=== PATIENT | male | born 1965 | race Caucasian/White ===

== ENCOUNTER 2020-10-10 01:02 | Emergency (ER) | payer OTHER ==
[2020-10-10 04:03] LABS: HEMOGLOBIN 12.3 gm/dl (14.0-17.5); RED BLOOD COUNT 3.43 M/UL (4.20-5.50); WHITE BLOOD COUNT 12.6 K/UL (4.5-11.0)
[2020-10-10 04:38] LABS: BUN/CREATININE RATIO 17 (0-10)
== END 2020-10-10 05:30 | disposition short-term general hospital (02) ==
LOC: ER1 01:02
PROVIDERS: Family Medicine
DX: S27.0XXA Traumatic pneumothorax, initial encounter (principal); S22.42XA Multiple fractures of ribs, left side, initial encounter for closed fracture; S52.502A Unspecified fracture of the lower end of left radius, initial encounter for closed fracture; S52.602A Unspecified fracture of lower end of left ulna, initial encounter for closed fracture; J44.9 Chronic obstructive pulmonary disease, unspecified; Z86.13 Personal history of malaria; F17.200 Nicotine dependence, unspecified, uncomplicated; Z95.5 Presence of coronary angioplasty implant and graft; V49.40XA Driver injured in collision with unspecified motor vehicles in traffic accident, initial encounter; S61.412A Laceration without foreign body of left hand, initial encounter
CPT/HCPCS: 71111; 73110; 80053; 82550; 82553; 83874; 84484; 85025; 96374; 96375; 99284; J2270; J2405; J7030